=== PATIENT | female | born 1955 | race Caucasian/White ===

== ENCOUNTER 2022-02-11 10:40 | Outpatient (CLI) | payer MEDICARE, SELFPAY ==
[2022-02-11 10:56] LABS: Abs Immature Grans 0.03 10^3/uL (0.0-0.06); Absolute Basophil Count 0.04 10^3/uL (0.0-0.2); Absolute Lymphocyte Count 0.83 10^3/uL (1.2-3.4); Absolute Monocyte Count 0.22 10^3/uL (0.1-0.8); Absolute Neutrophil Count 4.17 10^3/uL (1.2-6.7); Basophils % 0.7; Eosinophils % 1.9; HCT 27.8 % (36.0-46.0); HGB 8.5 g/dL (11.2-15.7); Immature Grans % 0.6; Lymphocytes % 15.4; MCH 23.7 pg (27.0-33.0); MCHC 30.6 % (32.0-36.0); MCV 78 fL (80-95); MPV 8.5 fL (8.0-11.0); Monocytes % 4.1; Neutrophils % 77.3; RBC 3.58 10^6/uL (3.93-5.22); RDW 19.3 % (11.7-14.6); RDW-SD 54.9 fL; WBC 5.39 10^3/uL (4.4-10.8)
[2022-02-11 11:20] LABS: Diff Comment Diff Reviewed; Hypochromasia 2+; Platelet Count 260 10^3/uL (130-400)
[2022-02-11 11:23] LABS: ALT 24 U/L (14-59); AST 21 U/L (15-37); Albumin 2.3 g/dL (3.4-5.0); Alkaline Phosphatase 88 U/L (46-116); Anion Gap 2.4 mmol/L (3-11); BUN 15 mg/dL (7-18); Bilirubin, Total 0.2 mg/dL (0.2-1.0); CO2 34.6 mmol/L (21.0-32.0); CREATININE 0.6 mg/dL (0.55-1.02); Calcium 8.9 mg/dL (8.5-10.1); Chloride 100 mmol/L (98-107); Estimated GFR 97.71 (mL/min/1.73m2); Glucose 115 mg/dL (74-106); Magnesium 1.6 mg/dL (1.8-2.4); Potassium 3.6 mmol/L (3.5-5.1); Sodium 137 mmol/L (136-145); Total Protein 6.9 g/dL (6.4-8.2)
== END 2022-02-11 10:41 | disposition home or self-care (01) ==
PROVIDERS: Visit Provider Internal Medicine Medical Oncology
DX: C34.31 Malignant neoplasm of lower lobe, right bronchus or lung (principal)
CPT/HCPCS: 36415; 80053; 83735; 85025

== ENCOUNTER → 2022-02-15 02:39 | Outpatient (CLI) | payer MEDICARE, SELFPAY ==
--- NOTE | 2022-02-15 13:11 | DI.RAD_ITS ---
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 COMPARISON: No exams were available for comparison FINDINGS: A exam is interpreted without benefit of prior exams. There is a moderate size right pleural effusio n with an air-fluid level. No left effusion is seen. The left lung appears clear. The right upper lobe appears clear. The cardiac silhouette is partially obscured but appears grossly normal. There is scoliosis is well as degenerative change in the spine. There is minimal compression of T8 and T9. IMPRESSION: Moderate size right pleural effusion with air-fluid level. DATA REPOSITORY: RADIATION DOSE DELIVERED:
== END ==
PROVIDERS: Visit Provider Internal Medicine Medical Oncology
DX: C34.31 Malignant neoplasm of lower lobe, right bronchus or lung (principal); C78.2 Secondary malignant neoplasm of pleura; J90 Pleural effusion, not elsewhere classified
CPT/HCPCS: 71046